=== PATIENT | female | born 1970 | race Two or more races ===

== ENCOUNTER 2020-12-17 08:34 | Emergency (ER) | payer BC, OTHER ==
[~2020-12-17] VITALS: Ht 165.1 cm; Wt 63.5 kg
[2020-12-17] MEDS ORDERED: diphenhdrAMINE HCL 50 MG/1 ML VL IM ONE (09:45)
[2020-12-17 10:02] VITALS: BP 150/82
[2020-12-17 10:14] LABS: Basophils # (auto) 0.1 10 ^3/uL (0-0.2); Basophils % (auto) 0.5 % (0.0-2.0); Eosinophils # (auto) 0.2 10 ^3/uL (0-0.8); Eosinophils % (auto) 1.4 % (0.0-7.0); Hematocrit 40.3 % (36.0-46.0); Hemoglobin 14.1 g/dL (12.2-16.2); Lymphocytes # (auto) 2.3 10 ^3/uL (0.4-5.4); Mean Corpuscular Hemoglobin 30.4 pg (28.0-32.0); Mean Corpuscular Hgb Conc. 35.1 g/dL (32.0-36.0); Mean Corpuscular Volume 86.7 fL (80.0-100.0); Monocytes # (auto) 0.7 10 ^3/uL (0-1.3); Monocytes % (auto) 5.2 % (0.0-12.0); Neutrophils # (auto) 10.1 10 ^3/uL (1.6-8.6); Neutrophils % (auto) 75.9 % (37.0-80.0); Red Blood Cells 4.65 10^6/uL (4.0-5.20); Red Cell Distribution Width 14.5 % (11.8-14.3); White Blood Cell 13.3 10^3/uL (4.4-10.8)
[2020-12-17 10:26] LABS: Amphetamine Screen, Urine NEGATIVE (NEGATIVE); Anion Gap 4 (5-15); Barbiturate Scree,Urine NEGATIVE (NEGATIVE); Benzodiazephine Screen, Urine NEGATIVE (NEGATIVE); Blood Urea Nitrogen 10 mg/dL (7-18); Calcium 9.4 mg/dL (8.5-10.1); Cannabinoid Screen, Urine POSITIVE (NEGATIVE); Carbon Dioxide 28 mmol/L (21-32); Chloride 108 mmol/L (98-107); Cocaine Screen, Urine NEGATIVE (NEGATIVE); Glucose 93 mg/dL (74-106); Phencyclidine Screen, Urine NEGATIVE (NEGATIVE); Potassium 3.8 mmol/L (3.5-5.1); Sodium 140 mmol/L (136-145)
[2020-12-17 10:32] LABS: BUN/Creatinine Ratio 16.4; GFR African American 133 mL/min; GFR Non-African American 110 mL/min
[2020-12-17 10:33] LABS: Alcohol, Urine < 3.0 mg/dL (0-10); Opiate Scree,Urine NEGATIVE (NEGATIVE)
== END 2020-12-17 10:52 | disposition home or self-care (01) ==
LOC: ER 08:34
DX: F41.1 Generalized anxiety disorder (principal); F17.210 Nicotine dependence, cigarettes, uncomplicated; Z88.5 Allergy status to narcotic agent
CPT/HCPCS: 36415; 80048; 80307; 84484; 85025; 85049; 93005; 96372; 99284; J1200